=== PATIENT | female | born 1985 | race Caucasian/White ===

== ENCOUNTER 2016-10-10 07:22 | Emergency (ER) | payer BC ==
[~2016-10-10 07:22] MED LIST: ADIPEX-P37.5 M2 PO; BACTRIM DS TAB1 EAC2 PO; GLUCOPHAGE1000 M1 PO; NORCO 7.5-3251 EACH PO; TOPAMAX50 M3 PO; WELLBUTRIN SR100 M2 PO; ZOFRAN ODT4 MG PO; ZOFRAN4 M2 PO
[2016-10-10 08:59] LABS: BASO % 0.3 % (0-2); EOS % 1.5 % (0-7); EOSINOPHIL ABSOLUTE COUNT 0.2 tho/cmm (0.0-0.7); HCT-HEMATOCRIT 39.1 % (34.0-49.0); HGB-HEMOGLOBIN 13.9 gm/dl (12.0-15.5); IMMATURE GRANULOCYTES ABSOLUTE 0.02 tho/cmm (0-0.03); IMMATURE GRANULOCYTES PERCENT 0.2 % (0-0.3); LYMPH % 32.5 % (20-45); LYMPH ABSOLUTE COUNT 3.3 tho/cmm (0.8-4.5); MCH (MEAN CORPUSCULAR HGB) 30.9 pg (28.0-32.0); MCHC MEAN CORPUSCULAR HGB CONC 35.5 % (32.0-36.0); MCV (MEAN CELL VOLUME) 86.9 fl (82.0-96.0); MEAN PLATELET VOLUME 10.7 cmc (9.4-12.4); MONO % 6.8 % (0-12); MONOCYTE ABSOLUTE COUNT 0.7 tho/cmm (0.0-1.2); NEUTROPHIL ABSOLUTE COUNT 5.9 tho/cmm (1.6-8.0); NEUTROPHIL-AUTOMATED 5.9 tho/cmm (1.6-8.0); NEUTROPHILS % 58.7 % (40-80); PLATELET COUNT 263 tho/cmm (150-450); RED CELL DISTRIBUTION WIDTH 12.4 % (12.4-16.4)
[2016-10-10 09:10] LABS: ALB/GLOB RATIO 0.9 (0.8-2.0); ALBUMIN 3.5 g/dl (3.5-5.0); ALKALINE PHOSPHATASE 76 U/L (33-138); ALT/SGPT 27 U/L (12-78); ANION GAP 13 mmol/L (0-20); AST/SGOT 40 U/L (10-40); BILIRUBIN,TOTAL 0.5 mg/dl (0-1.5); BLOOD UREA NITROGEN 10 mg/dl (6-24); CALCIUM 8.6 mg/dl (8.5-10.5); CARBON DIOXIDE-VENOUS 22 mmol/L (22-32); CHLORIDE 112 mmol/l (96-110); CREATININE 0.72 mg/dl (0.50-1.10); GLUCOSE 125 mg/dL (70-110); LIPASE 136 U/L (73-393); POTASSIUM 3.4 mmol/L (3.7-5.1); SODIUM 144 mmol/L (135-145); eGFR VALUE FOR BLACK >90 mL/Min
[2016-10-10] MEDS ORDERED: ZOFRAN4 M2 PO (09:57)
[2016-12-13] MEDS ORDERED: NO HOME MEDICATION XX (06:59)
[2016-12-13] MEDS ORDERED: NORCO 5-325 TA1 EACH PO (08:13)
[2016-12-13] MEDS ORDERED: COMPAZINE10 MG PO (08:13)
== END 2016-10-10 10:45 ==
LOC: EDMED 07:22
PROVIDERS: Emergency Medicine
DX: E86.0 Dehydration (principal); R11.2 Nausea with vomiting, unspecified; R19.7 Diarrhea, unspecified; E11.9 Type 2 diabetes mellitus without complications; Z79.899 Other long term (current) drug therapy; Z88.0 Allergy status to penicillin
CPT/HCPCS: J2405; J7030